=== PATIENT | female | born 1980 | race Caucasian/White ===

== ENCOUNTER 2021-10-16 08:34 | Outpatient (CLI) | payer BC, SELFPAY ==
--- NOTE | ~2021-10-16 | CT_ITS ---
EXAMINATION: CT abdomen wo con EXAM DATE: 10/16/2021 08:55 INDICATION: Generalized abdominal pain, bloating. Left-sided abdominal pain. Nausea. TECHNIQUE: Spiral CT of the abdomen was performed without contrast. Axial, coronal and sagittal nany ges of the abdomen were reviewed. The dose-length product (DLP) for this examination was 345.99 mGy- cm. The exposure was tailored according to patient size (auto mA exposure control), and iterative re construction (ASIR) was used as additional dose reduction technique. There is no prior study for tonya olguin. FINDINGS: The liver, spleen, adrenal glands and pancreas are unremarkable. Gallbladder is unremarkab le. No biliary obstruction. There is no nephrolithiasis or hydronephrosis. There is no retroperi toneal lymphadenopathy. Small umbilical fat-containing hernia. There is moderate-sized gastroesophageal hiatal hernia. There is expected amount of colonic stool. No free intraperitoneal gas. The heart is normal in size. There are no pericardial or pleural eff usions. The lung bases are unremarkable. There are no osteoblastic or osteolytic lesions identified . IMPRESSION: 1. Moderate-sized gastroesophageal hiatal hernia. 2. Small umbilical fat-containing hernia. Reviewed, dictated and finalized at location A. AL CONTACT WORKER
== END 2021-10-16 08:35 | disposition home or self-care (01) ==
LOC: ANHIMG 08:39
PROVIDERS: PCP Nurse Practitioner Family; Visit Provider Nurse Practitioner Family
DX: K44.9 Diaphragmatic hernia without obstruction or gangrene (principal); K42.9 Umbilical hernia without obstruction or gangrene
CPT/HCPCS: 74150

== ENCOUNTER 2023-11-14 07:33 | Outpatient (CLI) | payer BC, SELFPAY ==
--- NOTE | ~2023-11-14 | MR_ITS ---
EXAMINATION: MR brain/brain stem wo con DATE: 11/14/2023 08:21 INDICATION: Chronic migraine headache. TECHNIQUE: Magnetic resonance imaging (MRI) of the brain and brainstem was performed without intraven ous contrast. COMPARISON: Head CT 06/21/2008 FINDINGS: There is no intracranial hemorrhage, acute infarction, or abnormal intracranial mass lesion . The ventricles are normal in size. There is mucosal thickening in the paranasal sinuses. The orbits are normal. The mastoid air cells are normal. IMPRESSION: 1. Normal brain. Reviewed, dictated and finalized at location A. AL CIRCUIT DESIGNER IMPRESSION: 1. Normal brain.
== END 2023-11-14 07:34 | disposition home or self-care (01) ==
LOC: ANHIMG 07:34
PROVIDERS: PCP Nurse Practitioner Family; Visit Provider Nurse Practitioner Family
DX: H53.42 Scotoma of blind spot area (principal); G43.709 Chronic migraine without aura, not intractable, without status migrainosus
CPT/HCPCS: 70551

== ENCOUNTER 2025-06-12 08:00 | Outpatient (CLI) | payer BC, SELFPAY ==
--- OUTSIDE RECORDS SUMMARY | 2025-06-12 08:06 | XMS_ITS | Encounter Summary ---
Author Organization [facility] Healthcare Address [address] [place] [address] Care Team Providers Care Import Dispatcher Name Role Phone Johanny Deleon MD Primary Care Provider [phone] Asiya Diop NP Primary Care Provider [phone] Encounter Details Date Type Department Care Team (Late st Contact Info) Description 11/13/[address] [place] [address] Kavitha Ruiz, RT Social History Tobacco Use Types Packs/Day Years Used Date Smoking Tobacco: Never Smokeless Tobacco: Never Alcohol Use Standard Drinks/Week Comments Yes 0 (1 standard drink = 0.6 oz pur e alcohol) Exercise Vital Sign Answer Date Recorde d Days of Exercise per Week 3 days 2018 Minutes of Exercise per Session 30 min 07/04/2019 Comments No Sex and Gender Information Value Date Recorded Sex Assigned at Not on file Legal Sex Female 7:21 PM CARE PROGRAM DIRECTOR Gender Identity Not on file Sexual Orientation Not on file documented as of this encounter Plan of Treatment Not on file documented as of this encounter Visit Diagnoses Not on filedocumented in this encounter Care Teams Import Dispatcher Relationship Specialty Start Date End Date Johanny Deleon MD PCP - General 11/06/13 09/07/22 Asiya Diop NP [address] [place] [id number] PCP - General Nurse Practitioner 09/08/22 documented as of this encounter
--- OUTSIDE RECORDS SUMMARY | 2025-06-12 08:06 | XMS_ITS | Encounter Summary ---
Author Organization [facility] Address [address] [place] [id number] Care Team Providers Care District Sales Leader Name Role Phone Asiya Diop Primary Care Provider Encounter Details Date Type Department Care Team (Late st Contact Info) Description 10/29/2022 Smarterphone Message Enc [facility] Family & Internal Medicine [address] [id number] [facility] Social History Tobacco Use Types Packs/Day Years Used Date Smoking Tobacco: Former Smokeless Tobacco: Never Comments:social smoker in and college Alcohol Use Standard Drinks/Week Comments Never 0 (1 standard drink = 0.6 oz pur e alcohol) PHQ-2 Answer Date Recorded PHQ-2 Score - If the patient scores above 3, please move on to questions 3-9 0 05/14/2022 Comments No Sex and Gender Information Value Date Recorded Sex Assigned at Female 04/20/2025 10:13 AM CDT Legal Sex Female 2:41 PM CDT Gender Identity Not on file Sexual Orientation Not on file documented as of this encounter Plan of Treatment Not on file documented as of this encounter Visit Diagnoses Not on filedocumented in this encounter Additional Health Concerns Assessment Noted Time PHQ-9 Depression Total Score: 2 05/14/20 22 11:58 AM CDT documented as of this encounter Care Teams District Sales Leader Relationship Specialty Start Date End Date Asiya Diop FNP [address] [place] [id number] PCP - General Nurse Practitioner Family 09/23/21 documented as of this encounter
--- OUTSIDE RECORDS SUMMARY | 2025-06-12 08:06 | XMS_ITS | Encounter Summary ---
Author Organization [facility] Address [address] [place] [address] Care Team Providers Care Repairer Name Role Phone Asiya Diop Primary Care Provider [phone] Encounter Details Date Type Department Care Team (Late st Contact Info) Description 06/11/2025 Results Follow-Up [facility] Family & Internal Medicine [address] [phone] Asiya Diop FNP [address] [place] [address] [id number] LIPID PANEL, CBC W/DIFF AUTOMATED, TSH W/REFLEX, Additional followed-up results: 9 Social History Tobacco Use Types Packs/Day Years Used Date Smoking Tobacco: Former Smokeless Tobacco: Never Comments:social smoker in and college Alcohol Use Standard Drinks/Week Comments Never 0 (1 standard drink = 0.6 oz pur e alcohol) PHQ-2 Answer Date Recorded Patient Health Questionnaire-2 Score 0 04/20/2025 Comments No Sex and Gender Information Value Date Recorded Sex Assigned at Female 04/20/2025 10:13 AM CDT Legal Sex Female 2:41 PM CDT Gender Identity Not on file Sexual Orientation Not on file documented as of this encounter Progress Notes * ADRIAN Augustin - 06/11/2025 12:53 PM CDT Her labs show that she has some leukocytes in her urine and if she has any symptoms of a UTI we should send a culture She should continue to work on her diet and decreasing the saturated fats in her diet She should increase her D3 supplement daily Her other labs look good documented in this encounter Plan of Treatment Not on file documented as of this encounter Visit Diagnoses Not on filedocumented in this encounter Additional Health Concerns Assessment Noted Time PHQ-9 Depression Total Score: 3 12/08/19 23 11:16 AM GIS APPLICATION DEVELOPER documented as of this encounter Care Teams Repairer Relationship Specialty Start Date End Date Asiya Diop FNP [address] [place] [id number] PCP - General Nurse Practitioner Family 09/23/21 documented as of this encounter
--- OUTSIDE RECORDS SUMMARY | 2025-06-12 08:06 | XMS_ITS | Clinical Summary ---
Author Organization [facility] Address Formerly [facility] [place] [address] Care Team Providers Care Documentation Designer Name Role Phone Asiya Diop ADRIAN Primary Care Provider [phone] Allergies Active Allergy Reactions Criticality Noted Date Comments Penicillins Hives,Swelling Medium 09/23/2021 Medications BIOTIN 5000 OR Take 1 tablet by mouth daily. Active Cholecalciferol (VITAMIN D) 50 MCG (1999 UT) Tab Take by mouth 2 (two) times a day. Active minoxidil (LONITEN) 2.5 MG tablet Take 1 tablet (2.5 mg total) by mouth daily. 5 Active albuterol sulfate HFA 108 (90 Base) MCG/ACT inhalerIndication s:SOB (shortness of breath) on exertion Inhale 2 puffs into the lungs every 4 (four) hours as needed for Wheezing. 18 g 1 5 Active amphetamine-dextr oamphetamine XR (ADDERALL XR) 30 MG 24 hr capsuleIndication s:Attention deficit hyperactivity disorder (ADHD), predominantly inattentive type Take 1 capsule (30 mg total) by mouth every morning. 30 capsule 5 Active amphetamine-dextr oamphetamine XR (ADDERALL XR) 30 MG 24 hr capsuleIndication s:Attention deficit hyperactivity disorder (ADHD), predominantly inattentive type Take 1 capsule (30 mg total) by mouth every morning. 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 Hair loss 01/13/2022 Vitamin D deficiency 09/29/2021 Attention deficit hyperactiv ity disorder (ADHD), predominantly inattentive type 09/24/2021 History of anemia 09/24/2021 Left upper quadrant pain 09/24/2021 Adult BMI 28.0-28.9 kg/sq m 09/24/2021 Resolved Problems Problem Noted Date Diagnosed Date Resolved Date Monocular vision loss 11/01/20232023 Scotoma of blind spot area of left eye 11/01/2023 09/05/2024 Sensation of chest tightness 12/08/2022 09/05/2024 Generalized abdominal pain 09/24/2021 0 12/08/2022 Lack of motivation 09/24/2021 Anxiety 09/24/2021 09/05/2024 Polyarthralgia 09/24/2021 09/05/2024 Abdominal pain, chronic, left upper quadrant 09/05/2024 Abdominal bloating 09/24/2021 Fibrocystic breast changes 03/10/2013 1 Encounters Date Type Department Care Team Description 06/11/2025 Results Follow-Up [facility] [address] [address] Asiya Diop FNP LIPID PANEL, CBC W/DIFF AUTOMATED, TSH W/REFLEX, Additional followed-up results: 9 06/08/2025 9:40 AM CDT Laboratory Only [facility] [address] [address] Asiya Diop FNP 06/08/2025 Travel 06/06/2025 Telephone [facility] [address] [address] Asiya Diop FNP Orders 06/04/2025 Telephone [facility] [address] [phone] Asiya Diop FNP Referral 04/20/2025 10:00 AM CDT Office Visit [facility] [address] [address] Asiya Diop FNP Physical 04/20/2025 Travel from Last 3 Months Immunizations Immunization Administration Dates Next Due Tdap (Adacel) 11/01/2023 Family History Medical History Relation Comments Heart Disease Father genetic heart co ndition Hypertension Father Diabetes Maternal Grandfather Heart Disease Maternal Grandfather Asthma Maternal Grandmother Cancer Maternal Grandmother breast canc er Heart Disease Maternal Grandmother Vision loss Maternal Grandmother Drug Abuse Mother Heart Disease Paternal Grandmother Relation Status Comments Father Alive Maternal Grandfather Maternal Grandmother Alive Mother Alive Paternal Grandfather Alive Paternal Grandmother Social History Tobacco Use Types Packs/Day Years Used Date Smoking Tobacco: Former Smokeless Tobacco: Never Tobacco Cessation:Counseling Given: Yes Comments:social smoker in and college Alcohol Use [...] on file Sexual Orientation Not on file Last Filed Vital Signs Vital Sign Reading Time Taken Comments Blood Pressure 126/88 04/20/2025 10:13 AM CDT Pulse 71 04/20/2025 10:13 AM CDT Temperature 36.7 C (98.1 F) 04/20/2025 10:13 AM CDT Respiratory Rate 16 04/20/2025 10:13 AM CDT Oxygen Saturation 98% 04/20/2025 10:13 AM CDT Inhaled Oxygen Concentration - - Weight 83.1 kg (183 lb 3.2 oz) 04/20/2025 10:13 AM CDT Height 167.6 cm (5' 6) 04/20/2025 10:13 AM CDT Body Mass Index 29.57 04/20/2025 10:13 AM CDT Plan of Treatment Health Maintenance Due Date Last Done Comments Cervical Cancer Screening Pap Smear (Age 30 to 64) Every 3 Years 1980 Annual Physical 1983 Hepatitis C 1998 Hepatitis B Vaccines (1 of 3 - 19+ 3-dose series) 1999 HPV Vaccines (1 - 3-dose SCDM series) 2007 Cervical Cancer Screening Pap with HPV Testing (Age 30 to 64) Every 5 Years 2010 COVID-19 Vaccine ( season) 2025 03/05/2021, 02/06/2021 Postponed from 07/16/2024 (Patient Refused) Cervical Cancer Screening with HPV 04/20/2026 Postponed from 2010 (Going to Outside Clinic) Mammogram Screening 08/11/2026 08/11/2024, 08/11/2024, 07/21/2023, Additional history exists DTaP, Tdap and Td Vaccines (2 - Td or Tdap) 11/01/2033 11/01/2023 PHQ-2 (Physician Bolton) Completed 04/20/2025 Meningococcal B Vaccine Aged Out No l onger eligible based on patient's age to complete this topic Meningococcal Vaccine Aged Out No judah andreia eligible based on patient's age to complete this topic Pneumococcal Vaccine: Pediatrics (0 to 5 Years) and At-Risk Patients (6 to 49 Years) Aged Out No longer eligible based on patient's age to complete this topic RSV Immunizations Under 20 Months Aged Out No longer eligible based on patient's age to complete this topic Procedures Procedure Name Priority Date/Time Associated Diagnosis Comments COLLECTION VENOUS BLOOD VENIPUNCTURE Routine 06/08/2025 12:02 PM CDT History of anemia Attention deficit hyperactivity disorder (ADHD), predominantly inattentive type Overweight with body mass index (BMI) of 29 to 29.9 in adult Vitamin D deficiency FERRITIN Routine 06/08/2025 12:02 PM CDT History of anemia IRON SAT PANEL (IRON,IBC,%SAT) Routine 06/08/2025 12:02 PM CDT History of anemia MAGNESIUM Routine 06/08/2025 12:02 PM CDT Attention deficit hyperactivity disorder (ADHD), predominantly inattentive type VITAMIN B-12 Routine 06/08/2025 12:02 PM CDT Attention deficit hyperactivity disorder (ADHD), predominantly inattentive type URINALYSIS, AUTO, COMPLETE Routine 06/08/2025 12:02 PM CDT Attention deficit hyperactivity disorder (ADHD), predominantly inattentive type Overweight with body mass index (BMI) of 29 to 29.9 in adult COMPREHENSIVE METABOLIC PANEL Routine 06/08/2025 12:02 PM CDT Attention deficit hyperactivity disorder (ADHD), predominantly inattentive type Overweight with body mass index (BMI) of 29 to 29.9 in adult URIC ACID BLOOD Routine 06/08/2025 12:02 PM CDT Attention deficit hyperactivity disorder (ADHD), predominantly inattentive type Overweight with body mass index (BMI) of 29 to 29.9 in adult VITAMIN D, 25 OH Routine 06/08/2025 12:0 2 PM CDT Attention deficit hyperactivity disorder (ADHD), predominantly inattentive type Vitamin D deficiency TSH W/REFLEX Routine 06/08/2025 12:02 PM CDT Attention deficit hyperactivity disorder (ADHD), predominantly inattentive type Overweight with body mass index (BMI) of 29 to 29.9 in adult CBC W/DIFF AUTOMATED Routine 06/08/2025 12:02 PM CDT History of anemia Attention deficit hyperactivity disorder (ADHD), predominantly inattentive type Overweight with body mass index (BMI) of 29 to 29.9 in adult LIPID PANEL Routine 06/08/2025 12:02 PM CDT Overweight with body mass index (BMI) of 29 to 29.9 in adult FOLIC ACID SERUM Routine 06/08/2025 9:48 AM CDT Attention deficit hyperactivity disorder (ADHD), predominantly inattentive type MAMMOGRAM GENERIC (SCAN ORDER) 08/11/2024 from Last 3 Months or Most Recently Relevant to Health Maintenance Results * TSH W/REFLEX (06/08/2025 12:02 PM CDT) TSH 2.643 0.358 - 3.740 uIU/ML 06/08/2025 4:47 PM CDT [facility] 06/08/2025 12:0 2 PM CDT [facility] Final Result Performing Organization Address [facility] Co de Phone Number [address] [address], [place] [phone] * IRON SAT PANEL (IRON,IBC,%SAT) (06/08/2025 12:02 PM CDT) Pathologist [facility] IRON 56 50 - 170 MCG/DL 06/08/2025 4:47 PM CDT [facility] IRON BINDING CAPACITY 299 250 - 450 MCG/DL 06/08/2025 4:47 PM CDT [facility] IRON SATURATION 19 % 4:47 PM CDT [facility] Comment:REFERENCE RANGE NOT ESTABLISHED 06/08/2025 12:0 2 PM CDT [facility] Final Result Performing Organization Address [facility] Co de Phone Number [address] [address], [place] [phone] * (ABNORMAL) URINALYSIS (06/08/2025 12:02 PM CDT) COLOR (U) YELLOW 06/08/2025 5:30 PM CDT [facility] TRANSPARENCY CLOUDY(A) CLEAR 06/08/2025 5:30 PM CDT [facility] SPECIFIC GRAVITY (U) 1.025 1.003 - 1.040 06/08/2025 5:30 PM T [facility] U PH 6.0 5.0 - 9.0 06/08/2025 5:30 PM CDT [facility] PROTEIN RANDOM (U) NEGATIVE NEGATIVE 06/08/2025 5:30 PM CDT [facility] GLUCOSE (U) NEGATIVE NEGATIVE 06/08/2025 5:30 PM CDT [facility] KETONES MG/DL (U) NEGATIVE NEGATIVE 06/08/2025 5:30 PM CDT [facility] BILIRUBIN (U) NEGATIVE NEGATIVE 06/08/2025 5:30 PM T [facility] BLOOD (U) TRACE(A) NEGATIVE 06/08/2025 5:30 PM CDT [facility] UROBILINOGEN 0.2 0.0 - 2.0 EU/DL 06/08/2025 5:30 PM CDT [facility] NITRITES NEGATIVE NEGATIVE 06/08/2025 5:30 PM CDT [facility] LEUKOCYTES (U) 1+(A) NEGATIVE 06/08/2025 5:30 PM CDT [facility] RBC/HPF 0-3 0 - 3 /HPF 06/08/2025 5:30 PM T [facility] WBC/HPF 4-9(A) 0 - 3 /HPF 06/08/2025 5:30 PM CDT [facility] EPI/HPF 0-3 /HPF 06/08/2025 5:30 PM CDT [facility] BACTERIA (U) NONE SEEN NONE SEEN 06/08/2025 5:30 PM CDT [facility] AMORPHOUS SEDIMENT PRESENT 06/08/2025 5:30 PM CDT [facility] URINE SPECIMEN OBTAINED BY CLEAN CATCH PROCEDURE / Unknown 06/08/2025 12:02 PM CDT Asiya HAHNP URINE ORDERABLES Final Result Performing Organization Address City/[facility]/ZIP Co de Phone Number [facility] [address] [place] [address], [place] [phone] * VITAMIN B-12 (06/08/2025 12:02 PM CDT) VITAMIN B12 S/P/B 507 193 - 986 PG/ML 06/08/2025 4:47 PM CDT [facility] 06/08/2025 12:0 2 PM CDT Asiya HAHNP LABORATORY Final Result Performing Organization Address [facility]/ZIP Co de Phone Number [facility] [address] [place] [address], [place] [phone] * (ABNORMAL) COMPREHENSIVE METABOLIC PANEL (06/08/2025 12:02 PM CDT) SODIUM S/P/B 139 136 - 145 MMOL/L 06/08/2025 4:47 PM CDT [facility] POTASSIUM S/P/B 4.3 3.5 - 5.1 MMOL/L 06/08/2025 4:47 PM CDT [facility] CHLORIDE S/P/B 103 98 - 107 MMOL/L 06/08/2025 4:47 PM CDT [facility] CO2 25.3 21 - 32 MMOL/L 06/08/2025 4:47 PM CDT [facility] GLUCOSE 99 70 - 99 MG/DL 06/08/2025 4:47 PM CDT [facility] BUN 12 7 - 18 MG/DL 06/08/2025 4:47 PM CDT [facility] CREATININE S/P/B 0.64 0.55 - 1.02 MG/DL 06/08/2025 4:47 PM T [facility] CALCIUM S/P/B 9.4 8.4 - 10.5 MG/DL 06/08/2025 4:47 PM [facility] BILIRUBIN TOTAL S/P/B 0.3 0.2 - 1.0 MG/DL 06/08/2025 4:47 PM [facility] ALKALINE PHOSPHATASE S/P/B 57 37 - 98 U/L 06/08/2025 4:47 PM T [facility] AST 13(L) 15 - 37 U/L 06/08/2025 4:47 PM T [facility] ALT 23 14 - 59 U/L 06/08/2025 4:47 PM [facility] TOTAL PROTEIN S/P/B 7.4 6.4 - 8.2 G/DL 06/08/2025 4:47 PM [facility] ALBUMIN S/P/B 4.2 3.4 - 5.0 G/DL 06/08/2025 4:47 PM [facility] ANION GAP 10.7 5 - 15 MMOL/L 06/08/2025 4:47 PM [facility] Comment:REFERENCE RANGE NOT ESTABLISHED OSMOLALITY (CALC) 288 MOSM/KG 025 4:47 PM T [facility] Comment:REFERENCE RANGE NOT ESTABLISHED GFR ESTIMATE >90 >90 ML/MIN/1. 73 M2 06/08/2025 4:47 PM [facility] GFR NOTES GFR REFERENCE S: 06/08/2025 4:47 PM [facility] Comment: THE ESTIMATED GFR IS CALCULATED USING THE 2020 CKD-EPI EQUATION. THE FOLLOWING CATEGORIES FOR GRADING RENAL FUNCTION ARE RECOMMENDED BY THE INTERNATIONAL SOCIETY OF NEPHROLOGY (KDIGO 2012 CLINICAL PRACTICE GUIDELINE). G1,NORMAL OR HIGH: >89 ml/min/1.73 m2 G2,MILDLY DECREASED: 60-89 ml/min/1.73 m2 G3A,MILDLY TO MODERATELY DECREASED: 45-59 ml/min/1.73 m2 G3B,MODERATELY TO SEVERELY DECREASED: 30-44 ml/min/1.73 m2 G4,SEVERELY DECREASED: 15-29 ml/min/1.73 m2 G5,KIDNEY FAILURE: <15 ml/min/1.73 m2 06/08/2025 12:0 2 PM CDT us Asiya [facility] Final Result [facility] [address] [place] [address], * (ABNORMAL) LIPID PANEL (06/08/2025 12:02 PM CDT) CHOLESTEROL 233(H) <200 MG/DL 06/08/2025 4:47 PM CDT [facility] TRIGLYCERIDES 83 <150 MG/DL 06/08/2025 4:47 PM CDT [facility] HDL 55 >40 MG/DL 06/08/2025 4:47 PM CDT [facility] LDL-C 161(H) <100 MG/DL 06/08/2025 4:47 PM CDT [facility] VLDL CALCULATION 17 5 - 28 MG/DL 06/08/2025 4:47 PM CDT [facility] CHOL/HDL RATIO 4.2(H) 0.0 - 4.0 06/08/2025 4:47 PM CDT [facility] LDL/HDL 2.9(H) 0.41 - 2.13 06/08/2025 4:47 PM CDT [facility] NON HDL CHOLESTEROL 178(H) <140 MG/DL 06/08/2025 4:47 PM CDT [facility] 06/08/2025 12:0 2 PM CDT Asiya Diop [facility] Final Result -[facility], [place] [address] [place] [address], * (ABNORMAL) CBC W/DIFF AUTOMATED (06/08/2025 12:02 PM CDT) WBC 6.06 4.00 - 10.80 x10'3/uL 06/08/2025 2:56 PM CDT [facility] RBC 5.01 4.10 - 5.40 x10'6/uL 06/08/2025 2:56 PM CDT [facility] HGB 14.4 12.0 - 16.0 G/DL 06/08/2025 2:56 PM CDT [facility] HCT 44.0 36.0 - 47.0 % 06/08/2025 2:56 PM CDT -[facility] MCV 87.8 78.0 - 100.0 FL 06/08/2025 2:56 PM CDT [facility] MCH 28.7 27.0 - 31.0 PG 06/08/2025 2:56 PM CDT [facility] MCHC 32.7(L) 33.0 - 36.0 G/DL 06/08/2025 2:56 PM CDT [facility] RDW 12.6 11.5 - 14.5 % 06/08/2025 2:56 PM CDT -[facility] PLT 253 150 - 350 x10'3/uL 06/08/2025 2:56 PM CDT [facility] MPV 10.3 7.4 - 10.4 FL 06/08/2025 2:56 PM CDT [facility] DIFFERENTIAL TYPE AUTOMATED DIFFERENTIAL 06/08/2025 2:56 PM CDT [facility] NEUTROPHILS % 56.9 % 06/08/2025 2:56 PM CDT [facility] LYMPHOCYTES % 29.4 % 06/08/2025 2:56 PM CDT [facility] MONOCYTES % 7.3 % 06/08/2025 2:56 PM CDT [facility] EOSINOPHILS % 5.9 % 06/08/2025 2:56 PM CDT [facility] BASOPHILS % 0.5 % 06/08/2025 2:56 PM CDT [facility] IMMATURE GRANS % 0.0 % 06/08/2025 2:56 PM CDT [facility] ABS. NEUTROPHILS 3.45 1.60 - 8.30 x10'3/uL 06/08/2025 2:56 PM CDT [facility] ABS. LYMPHOCYTES 1.78 0.80 - 4.70 x10'3/uL 06/08/2025 2:56 PM CDT [facility] ABS. MONOCYTES 0.44 0.00 - 1.50 x10'3/uL 06/08/2025 2:56 PM CDT [facility] ABS. EOSINOPHILS 0.36 0.00 - 0.40 x10'3/uL 06/08/2025 2:56 PM CDT [facility] ABS. BASOPHILS 0.03 0.00 - 0.20 x10'3/uL 06/08/2025 2:56 PM CDT [facility] ABS. IMMATURE GRANULOCYTES 0.00 0.00 - 0.03 x10'3/uL 06/08/2025 2:56 PM CDT [facility] 06/08/2025 12:0 2 PM CDT Asiya HAHNP LABORATORY Final Result [facility] [address] [place] [address], * (ABNORMAL) VITAMIN D, 25 OH (06/08/2025 12:02 PM CDT) VITAMIN D 25 HYDROXY TOTAL S/P/B 28.1(L) 30 - 100 NG/ML 06/08/2025 4:47 PM CDT [facility] Comment: DEFICIENT <20 INSUFFICIENT 20-30 SUFFICIENT 30-100 06/08/2025 12:0 2 PM CDT Asiya Ríosmarisa [facility] Final Result Performing Organization Address City/[facility]/ZIP Co de Phone Number [facility] [address] [place] [address], [place] [phone] * MAGNESIUM (06/08/2025 12:02 PM CDT) Pathologist [facility] MAGNESIUM 2.1 1.8 - 2.4 MG/DL 06/08/2025 4:47 PM CDT [facility] 06/08/2025 12:0 2 PM CDT Asiya Ríosmarisa [facility] Final Result Performing Organization Address City/[facility]/ZIP Co de Phone Number [address] [address], [place] [phone] * FERRITIN (06/08/2025 12:02 PM CDT) [facility] FERRITIN 80.0 8 - 252 NG/ML 06/08/2025 4:47 PM CDT [facility] 06/08/2025 12:0 2 PM CDT Asiya Ríoszer [facility] Final Result Performing Organization Address City/[facility]/ZIP Co de Phone Number [facility] [address] [place] [address], [place] [phone] * URIC ACID BLOOD (06/08/2025 12:02 PM CDT) URIC ACID 4.1 2.6 - 6.0 MG/DL 06/08/2025 3:44 PM CDT [facility] 06/08/2025 12:0 2 PM CDT Asiya Diop [facility] Final Result Performing Organization Address City/[facility] Co de Phone Number [facility] [address] [place] [address], * FOLIC ACID SERUM (06/08/2025 9:48 AM CDT) FOLATE 11.8 8.6 - 58.9 NG/ML 06/08/2025 4:00 PM CDT [facility] 06/08/2025 9:48 AM CDT Asiya Diop [facility] Final Result Performing Organization Address [facility] de Phone Number [address] [place] [address], [place] [phone] * MAMMOGRAM GENERIC (SCAN ORDER) (08/11/2024) Anatomical Region Laterality Modality Other 08/11/2024 [facility] Scanned SCANNING Final Resu lt from Last 3 Months or Most Recently Relevant to Health Maintenance Insurance [facility] Care Teams Documentation Designer Relationship Specialty Start Date End Date Asiya Diop FNP [address] [place] [id number] PCP - General Nurse Practitioner Family 09/23/21
--- OUTSIDE RECORDS SUMMARY | 2025-06-12 08:06 | XMS_ITS | Encounter Summary ---
Author Organization [facility] Address [address] [place] [address] Care Team Providers Care Campaign Fundraiser Name Role Phone Asiya Diop Primary Care Provider [phone] Encounter Details Date Type Department Care Team (Late st Contact Info) Description 08/24/2023 [employer] [employer] Message Enc [facility] Action Needed Social History Tobacco Use Types Packs/Day Years Used Date Smoking Tobacco: Former Smokeless Tobacco: Never Comments:social smoker in and college Alcohol Use Standard Drinks/Week Comments Never 0 (1 standard drink = 0.6 oz pur e alcohol) PHQ-2 Answer Date Recorded Patient Health Questionnaire-2 Score 1 12/08/2022 Comments No Sex and Gender Information Value [...] Total Score: 3 12/08/19 23 11:16 AM [employer] documented as of this encounter Care Teams Campaign Fundraiser Relationship Specialty Start Date End Date Asiya Diop FNP [address] [place] [id number] PCP - General Nurse Practitioner Family 09/23/21 documented as of this encounter
--- OUTSIDE RECORDS SUMMARY | 2025-06-12 08:06 | XMS_ITS | Clinical Summary ---
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 Hair loss 01/13/2022 Vitamin D deficiency 09/29/2021 Abdominal bloating 09/24/2021 Anxiety 09/24/2021 Attention deficit hyperactiv ity disorder (ADHD), predominantly inattentive type 09/24/2021 Generalized abdominal pain 09/24/2021 Left upper quadrant abdominal pain 09/24/2021 Polyarthralgia 09/24/2021 Well woman exam with routine gynecological exam 07/04/2019 Fibrocystic breast changes 03/10/2013 Surgical History Surgery Date Site/Laterality Comments HIP ARTHROPLASTY 2006 Left Hip arthroplasty Medical History Medical History Date Comments Hx Other Medical edometreosis re moved seveal surgeries Hx Other Medical scolisis Hx Other Medical Headache, migra ine Family History Medical History Relation Name Comments Heart disease Father Family history of cardiac disorder - (Added by TW Conv) Hypertension Father Family history of hypertension - (Added by TW Conv) Diabetes type II Maternal Grandfather Fam ashely history of type 2 diabetes mellitus - (Added by TW Conv) Osteoporosis Maternal Grandmother Family history of osteoporosis - (Added by Conv) Diabetes Other 1 Family history of Diabetes mellitus; Heart disease Other 2 Family history of Heart disease; Hypertension Other 3 Family history of Hypertension; Ovarian cancer Other 4 Family histor y of ovarian cancer - Relation: Aunt (Added by Conv) Colon cancer Other 5 Colon cancer - Relation: Aunt (Added by Conv) Relation Name Status Comments Father Maternal Grandfather Maternal Grandmother Other 1 Other 2 Other 3 Other 4 Other 5 Social History Tobacco Use Types Packs/Day Years [...] on file Legal Sex Female 7:21 PM TIRE MAN Gender Identity Not on file Sexual Orientation Not on file Obstetrics History Para Term AB IAB SAB Ectopic Multiple Livin g Live Births 3 3 3 3 3 Date Outcome GA Total Labor Labor/2nd/3rd Weight Sex Type Anes PTL Pascale A1 A5 Name Clin 2001 Term M Vag-S pont Living Complications:None 2006 Term F Vag-S pont Living Complications:None 2010 Term M Vag-S pont Living Complications:None Last Filed Vital Signs Vital Sign Reading Time Taken Comments Blood Pressure 144/93 06/23/2023 9:19 AM CDT aut omatic Pulse 88 06/23/2023 9:19 AM CDT Temperature - - Respiratory Rate - - Oxygen Saturation - - Inhaled Oxygen Concentration - - Weight 80 kg (176 lb 6.4 oz) 06/23/2023 9:19 AM CDT Height 167.6 cm (5' 5.98) 06/23/2023 9:19 AM CD T Body Mass Index 28.49 06/23/2023 9:19 AM CDT Plan of Treatment Health Maintenance Due Date Last Done Comments Depression Screening 1980 Hepatitis C Screening 1980 Varicella Vaccines (1 of 2 - 13+ 2-dose series) 1993 Hepatitis B Screening 1998 HPV Vaccines (1 - 3-dose SCDM series) 2007 Cervical Cancer Screening 10/14/2023 10/14/2022 Regular Well Visit/Exam 18-64 10/14/2023 10/14/2022, 07/04/2019 Covid-19 Vaccine ( season) 2024 03/05/2021, 02/06/2021 Influenza Vaccine (#1) 2025 Breast Cancer Screening-Mammogram 08/11/2025 08/11/2024, 07/21/2023, 09/28/2022, Additional history exists DTaP/Tdap/Td Vaccine (2 - Td or Tdap) 11/01/2033 11/01/2023 Pneumococcal vaccine <65 Aged Out No longer eligible based on patient's age to complete this topic Procedures Procedure Name Priority Date/Time Associated Diagnosis Comments SCREENING MAMMOGRAM BILATERAL W DONNY Schedule Routine, Read Routine (OP Routine) 08/11/2024 3:16 PM CDT Screening mammogram, encounter for PAP AND HIGH RISK HPV, REFLEX TO GENOTYPING Routine 10/14/2022 4:19 PM TIRE MAN Screening for cervical cancer from Last 3 Months or Most Recently Relevant to Health Maintenance Results * Screening Mammogram Bilateral W Donny (08/11/2024 3:16 PM CDT) Anatomical Region Laterality Modality Breast Bilateral Mammography Narrative 08/15/2024 10:23 AM CDT Mammogram Technique: Bilateral Digital Breast Tomosynthesis, Bilateral C-view 2D Screening mammogram. Views obtained: bilateral craniocaudal and bilateral mediolateral oblique. Computer Aided Detection was performed. Mammogram Findings: The present examination has been compared to prior imaging studies performed at [facility] on 11/18/2020 and 09/28/2022, and at [facility] on 07/21/2023. The breasts are extremely dense, which lowers the sensitivity of mammography. There is no suspicious abnormality in either breast. There are multiple bilateral fluctuating masses, many of which have been shown to be cysts on ultrasound 07/21/2023. Impression: There is no mammographic evidence of malignancy. Annual screening mammography is recommended. Consider breast MRI for supplemental screening given the patient's extremely dense breast tissue. OVERALL FINAL ASSESSMENT: BI-RADS CATEGORY 1: Negative. Procedure Note Juliana Cooper MD - 08/15/2024 Mammogram Technique: Bilateral Digital Breast Tomosynthesis, Bilateral C-view 2D Screening mammogram. Views obtained: bilateral craniocaudal and bilateral mediolateral oblique. Computer Aided Detection was performed. Mammogram Findings: The present examination has been compared to prior imaging studies performed at [facility] on 11/18/2020 and 09/28/2022, and at [facility] on 07/21/2023. The breasts are extremely dense, which lowers the sensitivity of mammography. There is no suspicious abnormality in either breast. There are multiple bilateral fluctuating masses, many of which have been shown to be cysts on ultrasound 07/21/2023. Impression: There is no mammographic evidence of malignancy. Annual screening mammography is recommended. Consider breast MRI for supplemental screening given the patient's extremely dense breasttissue. OVERALL FINAL ASSESSMENT: BI-RADS CATEGORY 1: Negative. us Self Screening Mammogram IMG MAMMO PROCEDURES Fi nal Result * Pap and High Risk HPV, reflex to Genotyping (10/14/2022 4:19 PM TIRE MAN) CLINICAL INFORMATION: [facility] Comment:Routine exam LMP [facility] Comment:UNKNOWN Previous Pap [facility] Comment:NONE GIVEN Prev. Bx [facility] Comment:NONE GIVEN SOURCE: [facility] Comment:Cervix, Endocervix Pap, specimen adequacy [facility] Comment:SATISFACTORY FOR NICO LUATION HPV interp [facility] Comment: Negative for intraepithelial lesion or malignancy. Atrophic pattern; predominantly parabasal cells [employer] [facility] Comment: YQ, CT(ASCP) CT screening location: [place] [address] [place] [address] Comment [facility] Comment: EXPLANATORY NOTE: The Pap is a screening test for cervical cancer. It is not a diagnostic test and is subject to false negative and false positive results. It is most reliable when a satisfactory sample, regularly obtained, is submitted with relevant clinical findings and history, and when the Pap result is evaluated along with historic and current clinical information. Human papillomavirus DNA, High Risk E6/E7 Not Detected NOT DETECTED [employer] /Traci RaeAndrés [facility] [place] Comment: Not Detected High Risk HPV types (16,18,31,33,35,39,45,51,52, 56,58,59,66,68) were not detected. Other HPV types which cause anogenital lesions may be present. The significance of the other types of HPV in malignant processes has not been established. Methodology: Real Time PCR Thin prep 10/14/2022 4:19 PM TIRE MAN 10/15/2022 1:32 AM TIRE MAN Bridgette Monte NP LAB CYTOLOGY ORDERABLES Final Result [facility] [address] [place] [address] Ebonie Berger/[facility] [address] [place] [address] from Last 3 Months or Most Recently Relevant to Health Maintenance Insurance [employer] OOS Member Subscriber Plan / Payer (Ef fective 2018-Present) Name:Asiya Yee Relation to Subscriber:Spouse Name:TAY YEE Date of :1982 (Home) Address: [address] [place] [address] Payer ID:[id number] (NAIC) Type:FELICIA CARTWRIGHT Address: [facility] [id number] [place] [address] MASS-ACTIVE [employer] Energy[employer] ACCESS [employer] OOS ANTHEM ACCESS Care Teams Regional Director Relationship Specialty Start Date End Date Asiya Diop NP [address] [place] [id number] PCP - General Nurse Practitioner 09/08/22
--- OUTSIDE RECORDS SUMMARY | 2025-06-12 08:06 | XMS_ITS | Referral Summary ---
Author Organization [facility] Address [address] [place] [address] Care Team Providers Care Hris Developer Name Role Phone Asiya Diop NP Primary Care Provider [phone] Allergies Active Allergy Reactions Criticality Noted Date Comments Penicillins Hives,Swelling Medium Medications dextroamphetami ne-amphetamine XR (ADDERALL XR) 20 mg 24 hr capsule Take 20 mg by mouth clinic lpn before breakfast 2 Active Active Problems Problem [...] gynecological exam 07/04/2019 Fibrocystic breast changes 03/10/2013 Social History Tobacco Use Types Packs/Day Years [...] on file Legal Sex Female 7:21 PM FITTER UP Gender Identity Not on file Sexual Orientation [...] 06/23/2023 9:19 AM CDT Plan of Treatment Not on file Procedures Procedure Name Priority Date/Time Associated Diagnosis Comments SCREENING MAMMOGRAM BILATERAL W DONNY Schedule Routine, Read Routine (OP Routine) 08/11/2024 3:16 PM CDT Screening mammogram, encounter for PAP AND HIGH RISK HPV, REFLEX TO GENOTYPING Routine 10/14/2022 4:19 PM FITTER UP Screening for cervical cancer from Last 3 [...] compared to prior imaging studies performed at [facility] on 11/18/2020 and 09/28/2022, and [facility]. The breasts are extremely dense, [...] compared to prior imaging studies performed at [facility] on 11/18/2020 and 09/28/2022, and at [facility] on 07/21/2023. The breasts are extremely dense, [...] HPV, reflex to Genotyping (10/14/2022 4:19 PM FITTER UP) CLINICAL INFORMATION: [facility] Comment:Routine exam LMP [facility] Comment:UNKNOWN Previous Pap [facility] Comment:NONE GIVEN Prev. Bx [facility] Comment:NONE GIVEN SOURCE: [facility] Comment:Cervix, Endocervix Pap, specimen adequacy [facility] Comment:SATISFACTORY FOR NICO LUATION HPV interp [facility] Comment: Negative for intraepithelial lesion or malignancy. Atrophic pattern; predominantly parabasal cells Junior Copywriter [facility] Comment: YQ, CT(ASCP) CT screening location: [place] [address] [place] [address] Comment [facility] [employer] [facility] Comment: EXPLANATORY NOTE: The Pap is a [...] High Risk E6/E7 Not Detected NOT DETECTED [employer] [facility] Comment: Not Detected High Risk HPV types (16,18,31,33,35,39,45,51,52, 56,58,59,66,68) were not detected. Other HPV types which cause anogenital lesions may be present. The significance of the other types of HPV in malignant processes has not been established. Methodology: Real Time PCR Thin prep 10/14/2022 4:19 PM FITTER UP 10/15/2022 1:32 AM FITTER UP us Bridgette Monte NP LAB CYTOLOGY ORDERABLES Final Result [facility] [address] [place] [address] [facility] [facility] [address] [place] [address] from Last 3 Months or Most Recently Relevant to Health Maintenance Insurance [employer] OOS [employer] ANTHEM ACCESS BLUE [employer] OOS ANTHEM ACCESS Member Subscriber Plan / Payer (Ef fective 2018-Present) Name:Asiya Yee D Relation to Subscriber:Spouse Name:TAY YEE Date of :1982 (Home) Address: [address] [place] [id number] Payer ID:[id number] (NAIC) Type:BC ALLIANCE Address: [address] [place] [id number] Care Teams Hris Developer Relationship Specialty Start Date End Date Asiya Diop NP [address] [place] [address] [id number] PCP - General Nurse Practitioner 09/08/22
--- OUTSIDE RECORDS SUMMARY | 2025-06-12 08:06 | XMS_ITS | Encounter Summary ---
Author Organization [facility] Address [address] [place] [address] Care Team Providers Care Woodworker Name Role Phone Asiya Diop Primary Care Provider [phone] Encounter Details Date Type Department Care Team (Late st Contact Info) Description 11/23/2023 [employer] Message Enc [facility] Family & Internal Medicine [facility] [address] [place] [address] Asiya Diop FNP [facility] [place] [address] Test results Social History Tobacco Use Types Packs/Day [...] Total Score: 3 12/08/19 23 11:16 AM REHAB AID documented as of this encounter Care Teams Woodworker Relationship Specialty Start Date End Date Asiya Diop FNP [address] [place] [id number] PCP - General Nurse Practitioner Family 09/23/21 documented as of this encounter
--- NOTE | 2025-07-04 13:03 | WPDPFTINT ---
PFT Procedure Performed PFT Procedure Performed Spirometry with Pre/Post Bronchodilator Plethysmography (Lung Vol) Diffusing Cap (DLCO) Flow Vol Loop PFT Interpretation This is a pulmonary function test with pre and post-bronchodilator spirometry, plethysmography and diffusing capacity. The test was performed and results interpreted in accordance with the 2019 and 2005 ATS/ERS Task Force guidelines respectively using the Global Lung Function Initiative-2012 reference equations. Patient demonstrated good effort and cooperation. Reproducibility criteria were met. The quality of the pre bronchodilator spirometry maneuver was Grade A and post bronchodilator spirometry maneuver was Grade A. Findings: Spirometry: There is a mid expiratory plateau or knee pattern in 1 of 2 pre bronchodilator maneuvers and a more pronounced knee pattern in 3 of 4 post bronchodilator maneuvers. The contour the inspiratory flow tracing is normal. The pre bronchodilator FVC is 4.34 L, 112% predicted. The pre bronchodilator FEV1 is 3.33 L, 106% predicted. The pre bronchodilator FEV1: FVC ratio 77%. The post bronchodilator FVC is 4.20 L, representing a 3% decrease. The post bronchodilator FEV1 is 3.48 L, representing a 4% increase. The post bronchodilator FEV1: FVC ratio is 83%. Plethysmography: The total lung capacity is 6.30 L, 117% predicted. The functional residual capacity is 3.53 L, 118% predicted. The residual volume is 1.96 L, 111% predicted. Diffusing capacity: The diffusing capacity unadjusted for hemoglobin and carboxyhemoglobin is 24.6, 102% predicted. The diffusing capacity adjusted for alveolar volume is 4.28, 93% predicted. Impression: There is a reproducible knee pattern of the expiratory flow tracing which is more pronounced in the post bronchodilator maneuvers. This can be a normal variant or pathologic and has been attributed to a choke point section of the bronchial tree. The normal variant is more common in younger female patients, decreases with age and is more pronounced in the post bronchodilator efforts. The pattern has also been described with kyphosis, kyphoscoliosis, central obstructing mass, and post lung transplantation. Otherwise, the spirometry is normal without evidence of an obstructive abnormality. There is no significant improvement after inhaling a single dose of albuterol. The lung volumes are normal. The diffusing capacity is normal. There are no prior studies for comparison
== END 2025-06-12 08:01 | disposition home or self-care (01) ==
PROVIDERS: PCP Nurse Practitioner Family; Visit Provider Nurse Practitioner Family
DX: R06.02 Shortness of breath (principal); R06.09 Other forms of dyspnea
CPT/HCPCS: 94060; 94726; 94729

== ENCOUNTER 2025-07-25 14:55 | Outpatient (CLI) | payer BC, SELFPAY ==
--- OUTSIDE RECORDS SUMMARY | 2025-07-23 09:18 | XMS_ITS | Encounter Summary ---
Author Organization [facility] Address [address] [place] [address] Care Team Providers Care Warehouse Supervisor Name Role Phone Asiya Diop NP Primary Care Provider [phone] Reason for Referral * Diagnostic Imaging (Routine) - Closed Specialty Diagnoses / Procedures Referred By Contac t Referred To Contact Diagnoses Screening mammogram, encounter for Procedures Screening Mammogram Bilateral W Donny Screening Mammogram, Self [facility] Referral ID Status Reason Start Date Expiration Date Visits Re quested Visits Authorized [id number] Closed 06/21/2025 07/21/2026 1 1 * Diagnostic Imaging (Routine) - Closed Specialty Diagnoses / Procedures Referred By Contac t Referred To Contact Diagnoses Screening mammogram, encounter for Procedures Screening Mammogram Bilateral W Donny Screening Mammogram, Self [facility] Referral ID Status Reason Start Date Expiration Date Visits Re quested Visits Authorized [id number] Closed 06/21/2025 07/21/2026 1 1 Reason for Visit * Diagnostic Imaging (Routine) - Closed Specialty Diagnoses / Procedures Referred By Contac t Referred To Contact Diagnoses Screening mammogram, encounter for Procedures Screening Mammogram Bilateral W Donny Screening Mammogram, Self [facility] Referral ID Status Reason Start Date Expiration Date Visits Re quested Visits Authorized [id number] Closed 06/21/2025 07/21/2026 1 1 Encounter Details Date Type Department Care Team (Latest Contact Info) Description 07/23/2025 9:18 AM CDT - 07/23/2025 11:59 PM CDT Hospital Encounter [facility] [place] [address] Screening mammogram, encounter for Discharge Disposition: Discharge to home or self care Social History Tobacco Use Types Packs/Day Years [...] on file Legal 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 Gender Identity Not on file Sexual Orientation Not on file documented as of this encounter Last Filed Vital Signs Vital Sign Reading Time Taken Comments Blood Pressure - - Pulse - - Temperature - - Respiratory Rate - - Oxygen Saturation - - Inhaled Oxygen Concentration - - Weight 75.8 kg (167 lb) 07/23/2025 9:25 AM CDT Height 167.6 cm (5' 6) 07/23/2025 9:25 AM CDT Body Mass Index 26.95 07/23/2025 9:25 AM CDT documented in this encounter Medications at Time of Discharge dextroamphetamin e-amphetamine XR (ADDERALL XR) 20 mg 24 hr capsule Take 20 mg by mouth noteman before breakfast 09/08/2022 documented as of this encounter Discharge Disposition Disposition Code Departure Means Destination Discharge to home or self care documented in this encounter Plan of Treatment Pending Results Name Type Priority Associated Diagnoses Date /Time Screening Mammogram Bilateral W Donny Imaging Schedule Routine, Read Routine (OP Routine) Screening mammogram, encounter for 07/23/2025 9:32 AM CDT Scheduled Orders Name Type Priority Associated Diagnoses Orde r Schedule Screening Mammogram Bilateral W Donny Imaging Schedule Routine, Read Routine (OP Routine) Screening mammogram, encounter for Expected: 06/21/2025, Expires: 08/21/2026 Screening Mammogram Bilateral W Donny Imaging Schedule Routine, Read Routine (OP Routine) Screening mammogram, encounter for Once for 1 Occurrences starting 07/23/2025 until 07/23/2025 documented as of this encounter Visit Diagnoses Diagnosis Screening mammogram, encounter for documented in this encounter Care Teams Warehouse Supervisor Relationship Specialty Start Date End Date Asiya Diop NP [address] [place] [id number] PCP - General Nurse Practitioner 09/08/22 documented as of this encounter
--- NOTE | ~2025-07-25 | CT_ITS ---
EXAMINATION:CT diagnostic chest wo con DATE: 07/25/2025 15:18 INDICATION: Shortness of breath. Abnormal pulmonary function tests. TECHNIQUE: Computed tomography (CT) of the chest was performed without intravenous contrast. Automated exposure control and iterative reconstruction technique were employed. The dose-length product (DLP) was 129.75 mGy-cm. COMPARISON: None. FINDINGS: The lungs demonstrate minimal atelectasis. Calcified bilateral lung nodules are consistent with old granulomatous disease. No bronchiectasis or honeycombing. No pleural effusion. The heart size is normal. No pericardial effusion. There is a large sliding hiatal hernia. There is moderate thoracic spondylosis. IMPRESSION: 1. No significant lung disease. 2. Large sliding hiatal hernia. Reviewed, dictated and finalized at location E.
--- OUTSIDE RECORDS SUMMARY | 2025-07-25 15:28 | XMS_ITS | Clinical Summary ---
Author Organization [facility] [employer] [facility] Address [address] [place] [address] Care Team Providers Care Transfer Machine Operator Name Role Phone Asiya Diop NP Primary Care Provider [phone] Allergies Active Allergy Reactions Criticality Noted Date Comments Penicillins Hives,Swelling Medium Medications dextroamphetami ne-amphetamine XR (ADDERALL XR) 20 mg 24 hr capsule Take 20 mg by mouth after school caregiver before breakfast Active Active Problems Problem Noted Date Diagnosed [...] gynecological exam 07/04/2019 Fibrocystic breast changes 03/10/2013 Encounters Date Type Department Care Team Description 07/23/2025 9:18 AM CDT - 07/23/2025 11:59 PM CDT Hospital Encounter [address] [place] [address] Screening mammogram, encounter for Discharge Disposition: Discharge to home or self care from Last 3 Months Surgical History Surgery Date Site/Laterality Comments HIP ARTHROPLASTY 2006 Left Hip arthroplasty Medical History Medical History Date Comments Hx Other Medical edometreosis re moved seveal surgeries Hx Other Medical scolisis Hx Other Medical Headache, migra ine Family History Medical History Relation Name Comments Heart disease Father Family history of cardiac disorder - (Added by Conv) Hypertension Father Family history of hypertension - (Added by Conv) Diabetes type II Maternal Grandfather Fam ashely history of type 2 diabetes mellitus - (Added by Conv) Breast cancer Maternal Grandmother Osteoporosis Maternal Grandmother Family history of osteoporosis - (Added by Conv) Breast cancer Maternal Great-Grandmother Diabetes Other 1 Family history of Diabetes mellitus; Heart disease Other 2 Family history of Heart disease; Hypertension Other 3 Family history of Hypertension; Ovarian cancer Other 4 Family histor y of ovarian cancer - Relation: Aunt (Added by ) Colon cancer Other 5 Colon cancer - Relation: Aunt (Added by ) Relation Name Status Comments Father Maternal Grandfather Maternal Grandmother Maternal Great-Grandmother Other 1 Other 2 Other 3 Other [...] on file Legal Sex Female 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 Gender Identity Not on file Sexual Orientation Not on file Obstetrics History Para Term AB IAB SAB Ectopic Multiple Livin g Live Births 3 3 3 3 3 Date Outcome GA Total Labor Labor/2nd/3rd Weight Sex Type Anes PTL Pascale A1 A5 Name Clin 2002 Term M Vag-S pont Living Complications:None 2006 [...] Mass Index 26.95 07/23/2025 9:25 AM CDT Plan of Treatment Health Maintenance Due Date Last Done Comments Depression Screening 1980 Hepatitis C Screening 1980 Varicella Vaccines (1 of 2 - 13+ 2-dose series) 1993 Hepatitis B Screening 1998 HPV Vaccines (1 - 3-dose SCDM series) 2007 Cervical Cancer Screening 10/14/2023 10/14/2022 Regular Well Visit/Exam 18-64 10/14/2023 10/14/2022, 07/04/2019 Covid-19 Vaccine (2024- season) 2025 03/05/2021, 02/06/2021 Influenza Vaccine (#1) 2025 Breast [...] REFLEX TO GENOTYPING Routine 10/14/2022 4:19 PM ABLE BODIED TANKERMAN Screening for cervical cancer from Last 3 [...] compared to prior imaging studies performed at [facility] on 11/18/2020 and 09/28/2022, and at [facility] on 07/21/2023. The breasts are extremely [...] compared to prior imaging studies performed at [facility] on 11/18/2020 and 09/28/2022, and at [facility] on 07/21/2023. The breasts are extremely [...] HPV, reflex to Genotyping (10/14/2022 4:19 PM ABLE BODIED TANKERMAN) CLINICAL INFORMATION: [facility] Comment:Routine exam LMP [facility] Comment:UNKNOWN Previous Pap [facility] Comment:NONE GIVEN Prev. Bx [facility] Comment:NONE GIVEN SOURCE: [facility] Comment:Cervix, Endocervix Pap, specimen adequacy [facility] Comment:SATISFACTORY FOR NICO LUATION HPV interp [facility] Comment: Negative for intraepithelial lesion or malignancy. Atrophic pattern; predominantly parabasal cells Wax Pattern As[employer]er [employer] [facility] Comment: YQ, CT(ASCP) CT screening location: [place] [address] [address] [place] [address] Comment [facility] Comment: EXPLANATORY NOTE: The Pap is a [...] High Risk E6/E7 Not Detected NOT DETECTED [facility] [place] Comment: Not Detected High Risk HPV types (16,18,31,33,35,39,45,51,52, 56,58,59,66,68) were not detected. Other HPV types which cause anogenital lesions may be present. The significance of the other types of HPV in malignant processes has not been established. Methodology: Real Time PCR Thin prep 10/14/2022 4:19 PM ABLE BODIED TANKERMAN 10/15/2022 1:32 AM ABLE BODIED TANKERMAN Bridgette Monte NP LAB CYTOLOGY ORDERABLES Final Result [place] [address] [address] [place] [address] [facility] [employer] [address] [place] [address] from Last 3 Months or Most Recently Relevant to Health Maintenance Insurance [employer] OOS ANTHEM ACCESS ANTHEM ACCESS BLUE ACCESS OOS ANTHEM ACCESS Care Teams Transfer Machine Operator Relationship Specialty Start Date End Date Asiya Diop NP [address] [place] [id number] PCP - General Nurse Practitioner 09/08/22
--- OUTSIDE RECORDS SUMMARY | 2025-07-25 15:28 | XMS_ITS | Encounter Summary ---
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
== END 2025-07-25 14:56 | disposition home or self-care (01) ==
PROVIDERS: PCP Nurse Practitioner Family; Visit Provider Nurse Practitioner Family
DX: R94.2 Abnormal results of pulmonary function studies (principal); R06.02 Shortness of breath; K44.9 Diaphragmatic hernia without obstruction or gangrene
CPT/HCPCS: 71250